=== PATIENT | female | born 2000 | race Caucasian/White ===

== ENCOUNTER 2024-05-11 03:31 | Emergency (ER) | payer OTHER ==
[2024-05-11] MEDS ORDERED: Ondansetron PF 4 MG/2 ML Vial ONE (03:56)
[2024-05-11 04:41] LABS: Bilirubin Neg (Negative); Blood, Urine Negative (Negative); Glucose, Urine (Dipstick) Normal (Negative); Ketone, Urine 50 mg/dL (Negative); Leukocyte 100 (Negative); Nitrite Negative (Negative); Protein, Urine (Dipstick) 15 mg/dl (Neg-Trace); Specific Gravity, Urine 1.025 (1.005-1.030); Urobilinogen Normal mg/dL (Less than 2)
[2024-05-11 04:45] LABS: #Basophils 0.03 10x3/uL (0.0-0.2); #Eosinophils 0.06 10x3/uL (0.0-0.5); #Monocytes 0.62 10x3/uL (0.0-1.1); #Neutrophils 12.38 10x3/uL (1.5-8.4); %Basophils 0.2 % (0.0-2.0); %Eosinophils 0.4 % (0.0-6.0); %Monocytes 4.3 % (0.0-10.0); %Neutrophils 86.7 % (40.0-75.0); Hematocrit 35.4 % (34.9-44.5); Hemoglobin 11.6 g/dL (12.0-15.5); Mean Corpuscular HGB CONC 32.8 g/dL (32.0-36.0); Mean Corpuscular Hemoglobin 28.4 pg (27.0-33.0); Mean Corpuscular Volume 86.6 fL (81.6-98.3); Mean Platelet Volume 10.5 fL (7.4-10.4); Platelet Count 205 10x3/uL (150-450); RBC Distribution Width 12.2 % (11.5-14.5); Red Blood Cell (RBC) Count 4.09 10x6/uL (3.90-5.03); White Blood Cell (WBC) Count 14.3 10x3/uL (3.5-10.5)
[2024-05-11 04:48] LABS: INR-International Normal Ratio 0.9; PTT 25.4 sec (22.0-33.0); Prothrombin Time 9.8 sec (9.5-12.1)
[2024-05-11 04:49] LABS: ALT (SGPT) 18 U/L (8-55); AST (SGOT) 26 U/L (5-34); Alkaline Phosphatase 204 U/L (40-110); Anion Gap 16 mmol/L (10-20); BUN (Urea Nitrogen) 10 mg/dL (7.0-18.7); Bilirubin, Total 0.5 mg/dL (0.2-1.2); Calc. Creatinine Clearance 0 mL/min (70-130); Calcium 9.1 mg/dL (7.8-10.44); Carbon Dioxide 21 mmol/L (22-29); Chloride 104 mmol/L (98-107); Estimated GFR 117; Globulin 3.9 g/dL (2.4-3.5); Glucose 82 mg/dL (70-105); Lipase 51 U/L (8-78); Magnesium 1.6 mg/dL (1.6-2.6); Potassium 3.4 mmol/L (3.5-5.1); Protein, Total 6.9 g/dL (6.0-8.3); Sodium 138 mmol/L (136-145)
[2024-05-11 04:50] LABS: Clarity Slightly Cloudy (Clear)
[2024-05-11 04:53] LABS: Bacteria/HPF 3+ HPF (None Seen); CAUTI Indications for Culture Pregnancy; RBC/HPF 0-3 HPF (0-3)
[2024-05-11 04:54] LABS: Transitional Epithelial 0-3 HPF (None Seen)
[2024-05-11 04:56] LABS: Urine Culture Reflex Yes Yes
== END 2024-05-11 05:27 | disposition home or self-care (01) ==
LOC: CSHERS 03:31
DX: O21.9 Vomiting of pregnancy, unspecified (principal); Z3A.35 35 weeks gestation of pregnancy
CPT/HCPCS: 80053; 81001; 83690; 83735; 85025; 85610; 85730; 87086; 96361; 96374; J2405

== ENCOUNTER 2024-06-09 11:15 | Inpatient (IN) | payer OTHER ==
[2024-06-09] MEDS ORDERED: Acetaminophen 500 MG TAB PO PRN (11:28)
[2024-06-09] MEDS ORDERED: Ondansetron PF 4 MG/2 ML Vial IVP PRN ×2 (11:28→15:13)
[2024-06-09] MEDS ORDERED: Promethazine HCl 25 MG/ML VIAL IM PRN (11:28)
[2024-06-09] MEDS ORDERED: Lidocaine 1% (PF) 30 ML VIAL SC PRN (11:28)
[2024-06-09] MEDS ORDERED: hydrALAZINE 20 MG/ML VIAL SLOW IVP PRN ×2 (11:28→15:13)
[2024-06-09] MEDS ORDERED: Oxytocin 30 units/NS 500 ML 500 ML IV SCH (11:30)
[2024-06-09] MEDS ORDERED: Lactated Ringer's 1,000 ML IV SCH (11:30)
[2024-06-09 11:47] VITALS: BMI 24.3
[2024-06-09 12:01] LABS: Hematocrit 34.7 % (34.9-44.5); Hemoglobin 11.2 g/dL (12.0-15.5); Mean Corpuscular HGB CONC 32.3 g/dL (32.0-36.0); Mean Corpuscular Hemoglobin 26.9 pg (27.0-33.0); Mean Corpuscular Volume 83.4 fL (81.6-98.3); Mean Platelet Volume 11.2 fL (7.4-10.4); Platelet Count 188 10x3/uL (150-450); RBC Distribution Width 13.4 % (11.5-14.5); Red Blood Cell (RBC) Count 4.16 10x6/uL (3.90-5.03); White Blood Cell (WBC) Count 8.7 10x3/uL (3.5-10.5)
[2024-06-09 12:44] LABS: Syphilis Antibody Nonreactive (Nonreactive); Syphilis Antibody Index 0.22 S/CO (<1.00 Non-Reactive)
[2024-06-09 12:45] LABS: HBsAg Index 0.18 S/CO (0-0.99); Hep B Surf Ag - L&D Non-Reactive S/CO (NonReactive)
[2024-06-09] MEDS ORDERED: diphenhydrAMINE 25 MG CAP PO PRN (15:13)
[2024-06-09] MEDS ORDERED: Milk Of Magnesia 30 ML UDCUP PO PRN (15:13)
[2024-06-09] MEDS ORDERED: Boostrix 0.5 ML (Tdap) VIAL (>/=7 yrs of age) IM ONE (15:13)
[2024-06-09] MEDS ORDERED: Bisacodyl 10 MG SUPP PR PRN (15:13)
[2024-06-09] MEDS ORDERED: HYDROcodone/Acetaminophen 5/325 mg Tablet PO PRN ×2 (15:13)
[2024-06-09] MEDS ORDERED: Preparation H Ointment 28 GM TUBE PR PRN (15:13)
[2024-06-09] MEDS ORDERED: Lanolin Ointment 7 GM TUBE TOP PRN (15:13)
[2024-06-09] MEDS ORDERED: Benzocaine-Menthol 82.5 ML CAN TOP PRN (15:13)
[2024-06-09] MEDS: Ferrous Sulfate 325 MG TAB PO SCH (16:54)
[2024-06-09] MEDS: Ibuprofen 800 MG TAB PO SCH (16:54)
[2024-06-10] MEDS: Docusate 100 MG CAP PO SCH (01:14)
[2024-06-10] MEDS ORDERED: Prenatal Vitamin 1 TAB PO SCH (09:00)
[2024-06-10 11:15] VITALS: BP 105/62; TEMP 98
== END 2024-06-10 16:30 | disposition home or self-care (01) | DRG 807 ==
LOC: CSHLD/OP 11:15 → CSHLD 12:32 → CSHANTE 15:00
PROVIDERS: ADMIT Student in an Organized Health Care Education/Training Program; ATTEND Student in an Organized Health Care Education/Training Program
PROC: 10E0XZZ Delivery of Products of Conception, External Approach (ICD-10-PCS; principal; 2024-06-09)
DX: O80 Encounter for full-term uncomplicated delivery (principal); Z37.0 Single live birth; Z3A.38 38 weeks gestation of pregnancy; Z88.0 Allergy status to penicillin
CPT/HCPCS: 85027; 86780; 86850; 86900; 86901; 87340; 99285; J2590

== ENCOUNTER 2025-05-24 16:27 | Emergency (ER) | payer OTHER ==
[~2025-05-24 16:27] MED LIST: Iopamidol 300 61% 100 ML VIAL FS ONE
[2025-05-24] MEDS ORDERED: Ondansetron PF 4 MG/2 ML Vial ONE (17:26)
[2025-05-24 18:01] LABS: #Basophils Less than 0.03 10x3/uL (0.0-0.2); #Eosinophils 0.03 10x3/uL (0.0-0.5); #Monocytes 0.43 10x3/uL (0.0-1.1); #Neutrophils 2.88 10x3/uL (1.5-8.4); %Basophils 0.4 % (0.0-2.0); %Eosinophils 0.5 % (0.0-6.0); %Lymphocytes 38.8 % (18.0-47.0); %Monocytes 7.8 % (0.0-10.0); %Neutrophils 52.3 % (40.0-75.0); Hematocrit 37.6 % (34.9-44.5); Hemoglobin 12.4 g/dL (12.0-15.5); Mean Corpuscular Hemoglobin 28.6 pg (27.0-33.0); Mean Corpuscular Volume 86.6 fL (81.6-98.3); Platelet Count 233 10x3/uL (150-450); Red Blood Cell (RBC) Count 4.34 10x6/uL (3.90-5.03); White Blood Cell (WBC) Count 5.51 10x3/uL (3.5-10.5)
[2025-05-24 18:05] LABS: BHCG - Serum Negative (NEGATIVE); Pregs Control Background? CLEAR/WHITE (CLR/WHITE); Pregs Control Bar Appear? YES (CONTROL BAR)
[2025-05-24 18:09] LABS: INR-International Normal Ratio 1.0; PTT 27.6 sec (22.0-33.0); Prothrombin Time 10.7 sec (9.5-12.1)
[2025-05-24 18:11] LABS: ALT (SGPT) 9 U/L (Less than 34); AST (SGOT) 12 U/L (11-34); Albumin 3.6 g/dL (3.1-4.5); Alkaline Phosphatase 56 U/L (40-110); Anion Gap 12 mmol/L (10-20); BUN (Urea Nitrogen) 13 mg/dL (7.0-18.7); Bilirubin, Total 0.3 mg/dL (0.3-1.2); Calc. Creatinine Clearance 0 mL/min (70-130); Calcium 8.4 mg/dL (7.8-10.44); Carbon Dioxide 23 mmol/L (22-29); Chloride 104 mmol/L (98-107); Globulin 2.9 g/dL (2.4-3.5); Glucose 98 mg/dL (70-105); Potassium 3.6 mmol/L (3.5-5.1); Sodium 135 mmol/L (136-145)
[2025-05-24 18:16] LABS: Glucose, Urine (Dipstick) Normal (Negative); Leukocyte 25 (Negative); Protein, Urine (Dipstick) 15 mg/dl (Neg-Trace); Specific Gravity, Urine 1.015 (1.005-1.030)
[2025-05-24 18:24] LABS: Bacteria/HPF 2+ HPF (None Seen); CAUTI Indications for Culture Alt mental st,lethar; RBC/HPF None Seen HPF (0-3); WBC/HPF 0-3 HPF (0-3)
[2025-05-24 18:25] LABS: Urine Culture Reflex No No
== END 2025-05-24 18:56 | disposition home or self-care (01) ==
LOC: CSHERS 16:27
DX: R51.9 Headache, unspecified (principal)
CPT/HCPCS: 70450; 70496; 70498; 71045; 80053; 81001; 83605; 84703; 85025; 85610; 85730; 86140; 96374; 96375; J2270; J2405; Q9967